=== PATIENT | female | born 1985 | race African-American/Black ===

== ENCOUNTER 2018-05-30 08:32 | Emergency (ER) | payer MEDICAID ==
[~2018-05-30] VITALS: Ht 165.1 cm; Wt 129.5 kg
[2018-05-30 08:38] VITALS: Ht 165.1 cm; Wt 129.5 kg
[2018-05-30 09:48] LABS: APPEARANCE SL CLDY (CLEAR); BACTERIA MANY /hpf (NONE SEEN); BILIRUBIN NEGATIVE (NEGATIVE); COLOR YELLOW (YELLOW); GLUCOSE NEGATIVE (NEGATIVE); KETONE NEGATIVE (NEGATIVE); MUCUS <1+ /lpf (NONE SEEN); NITRITE NEGATIVE (NEGATIVE); PROTEIN NEGATIVE (NEGATIVE); RED CELLS - URINE 0-5 /hpf (0-5); SPECIFIC GRAVITY 1.015 (1.005-1.020); UROBILINOGEN NORMAL (NORMAL); WHITE CELLS - URINE 0-5 /hpf (0-5)
[2018-05-30 10:13] VITALS: BP 150/91
== END 2018-05-30 10:11 | disposition home or self-care (01) ==
LOC: D.ER 08:32
PROVIDERS: Family Medicine
DX: K43.9 Ventral hernia without obstruction or gangrene (principal); F17.200 Nicotine dependence, unspecified, uncomplicated

== ENCOUNTER 2020-05-18 06:07 | Day surgery (SDC) | payer MEDICAID ==
[2020-05-14 10:37] LABS: BASOPHILS 0.2 % (0-2); EOSINOPHILS 1.3 % (0-7); HEMATOCRIT 39.9 % (36.0-48.0); HEMOGLOBIN 12.9 g/dL (12-16); IMMATURE GRANULOCYTES 0.2 % (0-5); LYMPHOCYTES 32.7 % (15-50); MCH 31.4 pg (26.0-34.0); MCHC 32.3 g/dL (31.0-37.0); MCV 97.1 fL (80.0-100.0); MEAN PLATELET VOLUME 10.4 fL (7.4-10.4); MONOCYTES 5.3 % (2-11); NEUTROPHILS 60.3 % (40-80); PLATELET COUNT 223 10x3/uL (130-400); RBC 4.11 10x6/uL (4.00-5.40)
[2020-05-14 10:52] LABS: CALC OSMOLALITY 281 mosm/kg (275-300); CALCIUM 8.5 mg/dL (8.5-10.1); CHLORIDE - SERUM 103 mmol/L (98-107); CREATININE - SERUM 0.8 mg/dL (0.6-1.3); POTASSIUM - SERUM 3.3 mmol/L (3.5-5.1); SODIUM 138 mmol/L (136-145); UREA NITROGEN 14 mg/dL (7-18); eGFR NON AFRICAN AMERICAN 87 mL/min (90-120)
[2020-05-14 10:54] LABS: GLUCOSE 191 mg/dL (74-106)
[~2020-05-18] VITALS: Ht 165.1 cm; Wt 122.9 kg
--- NOTE | ~2020-05-18 | OP ---
PATIENT NAME: SILVERIO DON MEDICAL RECORD: [id number] :85 LOCATION:D.OPS ADMISSION DATE: SURGEON: DARSHAN CRAWFORD MD DATE OF OPERATION: 05/18/2020 PREOPERATIVE DIAGNOSES: 1. Ventral incisional hernia. 2. Tobacco dependence syndrome. 3. Morbid obesity with a BMI of 45. 4. Hypertension. POSTOPERATIVE DIAGNOSES: 1. Ventral incisional hernia. 2. Tobacco dependence syndrome. 3. Morbid obesity with a BMI of 45. 4. Hypertension. PROCEDURE: Ventral hernia repair with 15 x [address] mesh. SURGEON: Darshan Crawford MD REPORT OF PROCEDURE: The patient's abdomen was prepped and draped in sterile fashion. The patient had a previous midline incision and this scar was used to guide us in opening up the upper midline. We then used electrocautery to come through the subcutaneous tissues. As we penetrated down through the tissues, we encountered multiple hernia defects. The largest one was near the umbilicus. We penetrated this hernia defect and entered the abdominal cavity. We did a tedious dissection taking down any adhesions to the anterior abdominal wall. There were mainly some adhesions of the omentum to the anterior abdominal wall and the hernia defects. Once we had this all freed up, we opened up all of the bridging fascial tissue between the hernia defects and the final defect was approximately 20 cm in length. We elevated the fatty tissue off the anterior aspect of the fascia. At this point, a 15 cm x [address] mesh was inserted in an underlay fashion and this was sutured down on all sides using multiple interrupted 0 Prolenes. The mesh rested in good position. We irrigated out the wound with normal saline. The fascia was then closed in the midline overlying the mesh using a running #1 loop PDS times 2. We assured there was no sign of any bleeding. The umbilicus was tacked back down using an interrupted 3-0 Vicryl and the subcutaneous tissues were reapproximated with interrupted 3-0 Vicryl. The skin was closed with running subcutaneous 5-0 Monocryl and dressed appropriately. COMPLICATIONS: None. CONDITION: Stable. ANESTHESIA: General endotracheal. BLOOD LOSS: 50 mL. TRANSINT:[id number] Voice Confirmation ID: [id number] DOCUMENT ID: [id number] OPERATIVE REPORT [id number] SILVERIO DON DARSHAN CRAWFORD MD CC: MOON LEWIS APRN [id number] DICTATION DATE: 05/18/20 1000 RESORT DESK CLERK: 05/18/201927 [facility] [place] 05/18/20 [facility] [address] [place] [address]
[~2020-05-18 06:07] MED LIST: BUPROPION HCL100 MG PO; HCTZ25 MG PO; NORVASC10 MG PO
[2020-05-18 06:22] VITALS: BP 157/102; Ht 165.1 cm; Wt 122.9 kg
[2020-05-18 06:34] LABS: HCG URINE NEGATIVE (NEGATIVE)
[2020-05-18] MEDS ORDERED: HYDROCODON-ACE1 EA10 PO (09:51)
[2020-05-18] MEDS ORDERED: CYCLOBENZAPRINE10 MG PO (09:52)
--- NOTE | 2020-05-18 10:59 | NUR ---
1045 ASSISSTED UP TO BR VOIDS QS, AMBULATED WITH ASSISSTANCE, RETURNED TO BED TO REST. SISTER AT BEDSIDE.
== END 2020-05-18 12:15 | disposition home or self-care (01) ==
LOC: D.OPS 06:07 → D.PAN 09:45 → D.OPS 09:45
PROVIDERS: ATTEND Surgery
DX: K43.2 Incisional hernia without obstruction or gangrene (principal); F17.210 Nicotine dependence, cigarettes, uncomplicated; E66.01 Morbid (severe) obesity due to excess calories; Z68.42 Body mass index [BMI] 45.0-49.9, adult; I10 Essential (primary) hypertension

== ENCOUNTER 2020-06-07 17:10 | Emergency (ER) | payer MEDICAID ==
[2020-05-18 06:22] VITALS: Ht 165.1 cm; Wt 126.4 kg
[~2020-06-07] VITALS: Ht 165.1 cm; Wt 126.4 kg
[~2020-06-07 17:10] MED LIST changes: +CYCLOBENZAPRINE10 MG PO; +HYDROCODON-ACE1 EA10 PO
[2020-06-07 17:30] VITALS: BP 152/91
[2020-06-07 18:25] LABS: BASOPHILS 0.2 % (0-2); EOSINOPHILS 2.8 % (0-7); HEMATOCRIT 30.6 % (36.0-48.0); HEMOGLOBIN 9.4 g/dL (12-16); IMMATURE GRANULOCYTES 0.9 % (0-5); LYMPHOCYTES 26.2 % (15-50); MCH 29.6 pg (26.0-34.0); MCHC 30.7 g/dL (31.0-37.0); MCV 96.2 fL (80.0-100.0); MEAN PLATELET VOLUME 9.8 fL (7.4-10.4); MONOCYTES 6.7 % (2-11); NEUTROPHILS 63.2 % (40-80); RBC 3.18 10x6/uL (4.00-5.40); RDW 13.6 % (11.5-14.5); WBC 9.1 10x3/uL (4.8-10.8)
[2020-06-07 18:31] LABS: PLATELET COUNT 358 10x3/uL (130-400)
[2020-06-07 18:40] LABS: CALC OSMOLALITY 280 mosm/kg (275-300); CALCIUM 8.9 mg/dL (8.5-10.1); CHLORIDE - SERUM 102 mmol/L (98-107); CREATININE - SERUM 0.9 mg/dL (0.6-1.3); POTASSIUM - SERUM 3.1 mmol/L (3.5-5.1); SODIUM 139 mmol/L (136-145); UREA NITROGEN 15 mg/dL (7-18); eGFR NON AFRICAN AMERICAN 75 mL/min (90-120)
[2020-06-07 18:42] LABS: APTT 27.2 SECONDS (22.8-39.4); INR 1.05 (0.85-1.17); PROTIME 13.7 SECONDS (11.6-15.0)
[2020-06-07 18:44] LABS: GLUCOSE 129 mg/dL (74-106)
[2020-06-07 18:46] LABS: ALBUMIN 3.3 g/dL (3.4-5.0); ALKALINE PHOSPHATASE 73 U/L (30-120); ALT (SGPT) 15 U/L (10-68); BILIRUBIN - TOTAL 0.31 mg/dL (0.2-1.3); MAGNESIUM - SERUM 1.6 mg/dL (1.8-2.4); PROTEIN - SERUM 7.6 g/dL (6.4-8.2)
[2020-06-07 19:56] LABS: HCG SERUM NEGATIVE (NEGATIVE)
[2020-06-07 20:20] LABS: BILIRUBIN NEGATIVE (NEGATIVE); KETONE NEGATIVE (NEGATIVE); NITRITE NEGATIVE (NEGATIVE); UROBILINOGEN NORMAL mg/dL (< 2)
[2020-06-07 20:21] LABS: EPITHELIAL CELLS 0-5 /hpf (0-5); WHITE CELLS - URINE 0-5 HPF (0-4)
[2020-06-07 20:22] LABS: BACTERIA FEW HPF (NONE SEEN)
[2020-06-07] MEDS ORDERED: HYDROCODON-ACE1 EAC7 PO (21:01)
== END 2020-06-07 21:52 | disposition home or self-care (01) ==
LOC: D.ER 17:10
PROVIDERS: Family Medicine
DX: S30.1XXA Contusion of abdominal wall, initial encounter (principal); D35.00 Benign neoplasm of unspecified adrenal gland; D64.9 Anemia, unspecified; E87.6 Hypokalemia; E83.42 Hypomagnesemia; R73.9 Hyperglycemia, unspecified; I10 Essential (primary) hypertension; Z72.0 Tobacco use

== ENCOUNTER 2020-11-04 06:46 | Day surgery (SDC) | payer MEDICAID ==
[~2020-11-04] VITALS: Ht 165.1 cm; Wt 119.3 kg
--- NOTE | ~2020-11-04 | OP ---
PATIENT NAME: SILVERIO DON MEDICAL RECORD: [id number] :85 LOCATION:IVAN ADMISSION DATE: SURGEON: KAMLESH CRAWFORD MD DATE OF OPERATION: 11/04/2020 PREOPERATIVE DIAGNOSES: 1. Chronic abdominal wound. 2. History of ventral hernia repair with mesh. 3. Morbid obesity with a BMI of 45. 4. Hypertension. POSTOPERATIVE DIAGNOSES: 1. Chronic abdominal wound. 2. History of ventral hernia repair with mesh. 3. Morbid obesity with a BMI of 45. 4. Hypertension. PROCEDURE: Abdominal wound exploration with debridement. SURGEON: Kamlesh Crawford MD DESCRIPTION OF PROCEDURE: The patient's abdomen was prepped and draped in sterile fashion. A skin incision was made in the midline just above the umbilicus. Electrocautery was used to dissect through the subcutaneous tissues. We were able to elevate the patient's umbilicus where there was an open draining wound. Leading from this, there was some necrotic-appearing proteinaceous material. I was able to follow this down and eventually bluntly poked into a pocket with more of this proteinaceous material and what appeared to be some thin purulent material. We were able to get cultures of this fluid. This pocket was opened up using electrocautery. I was able to debride some of this material off of what appeared to be the fascial layer. I never felt the patient's mesh was penetrating around this wound. The defect itself was probably 8 cm long and about a 5-6 cm wide. I went ahead and unroofed the overlying inflamed fatty tissue in all directions and again I never encountered any mesh material. I did encounter one Prolene suture, which was removed. The underlying tissue could have possibly been the mesh underlying the fascia, but I never felt any material that felt like mesh and I believe this was an abscess pocket that was overlying the rectus fascia. I irrigated out the wound thoroughly with peroxide and saline solution. I inspected the area to assure there was no sign of any active bleeding. The umbilicus was then repaired with a [id number] 5-0 Monocryl. The umbilicus was then tacked down to the underlying tissues using a single interrupted 3-0 Vicryl. A 15 round Martín drain was inserted through the right lower quadrant and it rested in position on this abscess pocket. The subcutaneous tissues were then reapproximated with multiple interrupted 3-0 Vicryl and the skin was closed with running subcutaneous 5-0 Monocryl. A 10 mL of 0.25% Marcaine with epinephrine was infused into the surrounding tissues and the wounds were dressed appropriately. COMPLICATIONS: None. CONDITION: Stable. ANESTHESIA: General endotracheal and local. BLOOD LOSS: 30 mL. OPERATIVE REPORT [id number] SILVERIO DON TRANSINT:[id number] Voice Confirmation ID: [id number] DOCUMENT ID: [id number] KAMLESH CRAWFORD MD CC: MOON LEWIS APRN [id number] DICTATION DATE: 11/04/20 1012 DATABASES SOFTWARE CONSULTANT: 11/04/20 1027 [facility] [address] [place] [address]
[~2020-11-04 06:46] MED LIST changes: +CATAPRES0.1 MG PO; +FLAGYL500 MG PO; +HYDROCODON-ACE1 EAC7 PO
[2020-11-04 07:03] LABS: BASOPHILS 0.1 % (0-2); EOSINOPHILS 1.6 % (0-7); HEMATOCRIT 36.9 % (36.0-48.0); HEMOGLOBIN 11.6 g/dL (12-16); IMMATURE GRANULOCYTES 0.1 % (0-5); LYMPHOCYTE ABS# 3.02 10x3/uL (1.18-3.74); LYMPHOCYTES 31.6 % (15-50); MCH 27.6 pg (26.0-34.0); MCHC 31.4 g/dL (31.0-37.0); MCV 87.6 fL (80.0-100.0); MEAN PLATELET VOLUME 9.3 fL (7.4-10.4); NEUTROPHIL ABS# 5.81 10x3/uL (1.56-6.13); NEUTROPHILS 60.6 % (40-80); PLATELET COUNT 236 10x3/uL (130-400); RBC 4.21 10x6/uL (4.00-5.40); RDW 16.3 % (11.5-14.5); WBC 9.6 10x3/uL (4.8-10.8)
[2020-11-04 07:15] LABS: CALC OSMOLALITY 279 mosm/kg (275-300); CALCIUM 8.7 mg/dL (8.5-10.1); CARBON DIOXIDE 24.3 mmol/L (21.0-32.0); CHLORIDE - SERUM 106 mmol/L (98-107); CREATININE - SERUM 0.8 mg/dL (0.6-1.3); GLUCOSE 120 mg/dL (74-106); POTASSIUM - SERUM 3.8 mmol/L (3.5-5.1); SODIUM 138 mmol/L (136-145); UREA NITROGEN 20 mg/dL (7-18); eGFR NON AFRICAN AMERICAN 86 mL/min (90-120)
[2020-11-04 07:24] LABS: HCG SERUM NEGATIVE (NEGATIVE)
[2020-11-04 08:22] VITALS: BP 189/108; Ht 165.1 cm; Wt 119.3 kg
[2020-11-04] MEDS ORDERED: HYDROCODON-ACE1 EA10 PO (10:04)
[2020-11-04] MEDS ORDERED: CIPRO500 MG PO (10:07)
[2020-11-04] MEDS ORDERED: FLAGYL500 MG PO (10:07)
--- NOTE | 2020-11-04 13:41 | NUR ---
1230 ASSISTED WITH GETTING DRESSED AND SAFTY PIN TO PANTS TO HOLD JING DRAIN. EPTIED 32.5ML SEROUS BLOOD
== END 2020-11-04 12:40 | disposition home or self-care (01) ==
LOC: D.OPS 06:46
PROVIDERS: Anesthesiology; ATTEND Surgery
DX: T81.41XD Infection following a procedure, superficial incisional surgical site, subsequent encounter (principal); K43.9 Ventral hernia without obstruction or gangrene; E66.01 Morbid (severe) obesity due to excess calories; Z68.42 Body mass index [BMI] 45.0-49.9, adult; I10 Essential (primary) hypertension

== ENCOUNTER 2020-12-04 09:17 | Inpatient (IN) | payer MEDICAID ==
[~2020-12-04] VITALS: Ht 165.1 cm; Wt 118.2 kg
[~2020-12-04 09:17] MED LIST changes: +CIPRO500 MG PO
--- NOTE | 2020-12-04 09:54 | NUR ---
PATIENT ASSISTED TO BATHROOM FOR URINE SAMPLE. PAIN WITH AMBULATION NOTED. PATIENT WOUND ASSESSED. BLOOD CULTURES AND LAB DRAWN AND GIVEN TO DRAG DOWN AT BEDSIDE.
--- NOTE | 2020-12-04 10:03 | NUR ---
URINE SPECIMEN WALKED TO LAB AND GIVEN TO LAB STAFF.
[2020-12-04 10:06] LABS: BASOPHILS 0.1 % (0-2); HEMATOCRIT 35.1 % (36.0-48.0); IMMATURE GRANULOCYTES 0.5 % (0-5); LYMPHOCYTES 11.8 % (15-50); MCH 28.6 pg (26.0-34.0); MCHC 31.3 g/dL (31.0-37.0); MCV 91.2 fL (80.0-100.0); MEAN PLATELET VOLUME 10.1 fL (7.4-10.4); MONOCYTES 7.6 % (2-11); NEUTROPHIL ABS# 11.34 10x3/uL (1.56-6.13); PLATELET COUNT 255 10x3/uL (130-400); RBC 3.85 10x6/uL (4.00-5.40); WBC 14.4 10x3/uL (4.8-10.8)
[2020-12-04 10:24] LABS: CALC OSMOLALITY 268 mosm/kg (275-300); CALCIUM 8.6 mg/dL (8.5-10.1); CARBON DIOXIDE 23.9 mmol/L (21.0-32.0); CHLORIDE - SERUM 101 mmol/L (98-107); CREATININE - SERUM 0.5 mg/dL (0.6-1.3); GLUCOSE 100 mg/dL (74-106); SODIUM 134 mmol/L (136-145); UREA NITROGEN 14 mg/dL (7-18); eGFR NON AFRICAN AMERICAN > 90 mL/min (90-120)
[2020-12-04 10:32] LABS: BILIRUBIN NEGATIVE (NEGATIVE); KETONE NEGATIVE (NEGATIVE); NITRITE NEGATIVE (NEGATIVE)
[2020-12-04 10:33] LABS: ALKALINE PHOSPHATASE 62 U/L (30-120); ALT (SGPT) 16 U/L (10-68); AMYLASE - SERUM 19 U/L (25-115); PROTEIN - SERUM 6.7 g/dL (6.4-8.2)
[2020-12-04 10:34] LABS: BACTERIA 1+ HPF (NONE SEEN)
[2020-12-04 10:34] LABS: LIPASE 30 U/L (73-393); POTASSIUM - SERUM 4.4 mmol/L (3.5-5.1); TROPONIN-I < 0.017 ng/mL (0.000-0.060)
--- NOTE | 2020-12-04 10:43 | NUR ---
PATIENT TAKEN TO CT VIA STRETCHER
[2020-12-04 10:45] VITALS: BP 126/73
--- NOTE | 2020-12-04 11:05 | NUR ---
PATIENT RETURNED TO ROOM FROM CT. PAIN MEDICATIONS GIVEN, AT BEDSIDE. EDUCATED ON PURPOSE OF ANTIBIOTICS AND PROBIOTICS.
--- NOTE | 2020-12-04 11:45 | NUR ---
PATIENT STATING SHE WANTS TO GO HOME, THAT SHE DOES NOT WANT TO STAY. DR WESTFALL NOTIFIED. HE SPOKE WITH PATIENT AND SHE HAS DECIDED TO STAY INPATIENT FOR TREATMENT.
--- NOTE | 2020-12-04 12:11 | NUR ---
PATIENT STATED FOR 3RD TIME THAT SHE HAS CHANGED HER MIND, SHE DOES NOT WANT TO STAY IN THE HOSPITAL, SHE HAS KIDS SHE NEEDS TO GO HOME TO AND WOULD LIKE TO BE DISCHARGED. DR WESTFALL NOTIFIED. DR WESTFALL SPOKE WITH PATIENT. PATIENT STATES THAT SHE WILL STAY AND BE TREATED.
--- NOTE | 2020-12-04 12:37 | NUR ---
ATTEMPTED REPORT X 2. STATES THAT RECIEVING NURSE IS KT AND SHE IS BUSY.
--- NOTE | 2020-12-04 12:47 | NUR ---
ATTEMPTED TO CALL AND GET REPORT FROM SEBASTIÁN JAIMES RN. DID NOT COME TO PHONE.
--- NOTE | 2020-12-04 12:59 | NUR ---
REPORT CALLED TO ALFREDO MERAZ, ACCEPTING NURSE TO MED SURG.
--- NOTE | 2020-12-04 13:06 | NUR ---
TAKEN TO FLOOR
[2020-12-04] MEDS ORDERED: ULTRAM50 MG PO (13:32)
[2020-12-04] MEDS ORDERED: BUPROPION HCL150 M1 PO (13:34)
--- NOTE | 2020-12-04 13:41 | NUR ---
PT ADMITTED TO FLOOR FROM ER. PT ARRIVES TO FLOOR VIA STRETCHER ESCORTED BY HOSPITAL STAFF. PT IS AAO X 4 AND ANSWERS ALL QUESTIONS APPROPRIATELY. PIV TO LEFT HAND INFUSING WITHOUT COMPROMISE AND INFUSING VANCOMYCIN PER ORDER. PT REPORTS NEW ONSET OF ITCHING AND RASH NOTED TO LEFT WRIST/ARM. PT STATES THAT SHE IS NOW ITCHING TO RLE AND REPORTS A NEW ONSET OF ITCH. DR MANZANARES ON FLOOR AND NOTIFIED OF PT ITCHING AND VERBAL ORDERS RED ARE BENADRYL 50 MG PO Q 6 HOURS PRN FOR ITCHING. WILL PLACE ORDERS AND ADMINISTER. MIDLINE INCISION NOTED TO ABDOMEN WITH MODERATE AMOUNT OF CLEAR DRAINAGE NOTED. PT REQUESTS 4X4 AND TAPE AND STATES "I CAN PUT THE BANDAGES ON MYSELF". SUPPLIES GIVEN PER PT REQUEST. PT DENIES PRESENCE OF PAIN/N/V AT THIS TIME. INCENTIVE SPIROEMTER GIVEN AND EDUCATION GIVEN. PT GIVES APPROPRIATE RETURN DEMONSTRATION AND REACHES 2000. PT REFUSES SCDS AT THIS TIME. BED IS IN THE LOWEST POSITION. CALL LIGHT AND BEDSIDE TABLE ARE WITIHN REACH. SIDE RAILS X 2. PT DENIES FURTHER NEEDS. WILL ADMINISTER BENADRYL PER ORDER AND WILL CONT TO MONITOR.
[2020-12-04 14:12] VITALS: BP 143/74; BMI 43.3
--- NOTE | 2020-12-04 14:22 | NUR ---
PT REQUESTS FOR VANCOMYCIN TO BE ADDED TO ALLERGY LIST DUE TO ITCHING "ALL OVER". WILL ADD PER PT REQUEST.
--- NOTE | 2020-12-04 15:39 | NUR ---
PT IS RESTING IN BED WITH EYES CLOSED. PT IS EASILY AROUSED WITH VERBAL STIMULATION. RESPIRATIONS ARE EVEN AND UNLABORED. PT REPORTS ITCHINESS HAS SUBSIDED AND DENIES FURTHER NEEDS. INCENTIVE SPIROMETER WITHIN REACH AND ENCOURAGED. BED IS IN THE LWOEST POSITION. CALL LIGHT AND BEDSIDE TABLE ARE WITHIN REACH. SIDE RAIL X 2. WILL CONT TO MONITOR.
[2020-12-04 17:35] VITALS: BP 126/78
--- NOTE | 2020-12-04 17:50 | NUR ---
PT REPORTS SMOKING "4-5" CIGARETTES A DAY AND REQUESTS NICOTINE PATCH. PER COREMEASURE WILL PLACE ORDER FOR 7MG NICOTINE PATCH Q 24 HOURS.
[2020-12-04 19:11] VITALS: Ht 165.1 cm; Wt 118.2 kg
--- NOTE | 2020-12-04 20:04 | NUR ---
GAVE ABIMAEL CRACKERS AND PEANUT BUTTER FOR HS SNACK PER REQUEST. REMINDED PT THAT SHE IS NPO AFTER MIDNIGHT.
--- NOTE | 2020-12-04 20:49 | NUR ---
PT STATED SHE WANTS TO LEAVE, INFORMED PT SHE HAD TO LEAVE AGAINST MEDICAL ADVICE AND EDUCATED HER, AMA SIGNED DR MANZANARES NOTIFIED
--- NOTE | 2020-12-05 16:56 | MORECARE ---
CASE MANAGEMENT DISCHARGE SUMMARY PATIENT: SILVERIO DON UNIT: [id number] ADM DATE: 12/04/20 AGE: 35 : 85 SEX: F ROOM/BED: D.[facility] AUTHOR: ANA,DOC PHYSICIAN: REFERRING PHYSICIAN: ELIEZER MANZANARES MD DATE OF SERVICE: 12/05/20 Case Management Discharge Planning Summary DCP REVIEW SUMMARY ANTICIPATED D/C DATE: EXPECTED LOS : CASE STATUS: DCP Complete INITIAL REVIEW: 12/04/2020 INITIAL REVIEWER: Yoanna Hidalgo FINAL DISCHARGE DISPOSITION: : FINAL REVIEWER: FINAL REVIEW DATE: DCP Focus Questions & Answers QUESTION: ANSWER : PATIENT: SILVERIO DON ENCOUNTER: [id number] MEDICAL RECORD#: [id number] ADMISSION DATE: 12/04/2020 DISCHARGE DATE: 12/04/2020 ATTENDING MD: ELIEZER CARVAJAL : AGE: 35 MARITAL STATUS: S DC PLAN ID: [id number] FACILITY: [facility] PRINTED ON: 12/05/20 16:56 CT All edits/amendments must be made on the electronic document DICTATION DATE: 12/05/201654 BOOK SOLICITOR: DM 12/05/201654 RPT#: [id number] DC DATE:12/04/20 STATUS: DIS IN [facility] [address] [place] [address] END OF REPORT
--- NOTE | 2020-12-05 17:09 | MORECARE ---
CASE MANAGEMENT DISCHARGE SUMMARY PATIENT: SILVERIO DON UNIT: [id number] ADM DATE: 12/04/20 AGE: 35 : 85 SEX: F ROOM/BED: D.[facility] AUTHOR: ANA,DOC PHYSICIAN: REFERRING PHYSICIAN: ELIEZER MANZANARES MD DATE OF SERVICE: 12/05/20 Case Management Discharge Planning Summary DCP REVIEW SUMMARY ANTICIPATED D/C DATE: EXPECTED LOS : CASE STATUS: DCP Complete INITIAL REVIEW: 12/04/2020 INITIAL REVIEWER: Yoanna Hidalgo FINAL DISCHARGE DISPOSITION: : FINAL REVIEWER: FINAL REVIEW DATE: DCP Focus Questions & Answers QUESTION: ANSWER : PATIENT: SILVERIO DON ENCOUNTER: [id number] MEDICAL RECORD#: [id number] ADMISSION DATE: 12/04/2020 DISCHARGE DATE: 12/04/2020 ATTENDING MD: ELIEZER CARVAJAL : AGE: 35 MARITAL STATUS: S DC PLAN ID: [id number] FACILITY: [facility] PRINTED ON: 12/05/20 17:08 CT All edits/amendments must be made on the electronic document DICTATION DATE: 12/05/201707 TECHNICAL SERVICE ENGINEER: DM 12/05/201707 RPT#: [id number] DC DATE:12/04/20 STATUS: DIS IN [facility] [address] [place] [address] END OF REPORT
== END 2020-12-04 20:51 | disposition left against medical advice (07) | DRG 921 ==
LOC: D.ER 09:17 → D.MS 12:08
PROVIDERS: Family Medicine; ADMIT Surgery; ATTEND Surgery
DX: K91.873 Postprocedural seroma of a digestive system organ or structure following other procedure (principal); Z72.0 Tobacco use; I10 Essential (primary) hypertension

== ENCOUNTER → 2020-12-06 18:44 | Outpatient (CLI) | payer MEDICAID ==
[2020-12-04 19:11] VITALS: BMI 43.3
[~2020-12-06 18:44] MED LIST changes: +BUPROPION HCL150 M1 PO; +ULTRAM50 MG PO
== END | disposition home or self-care (01) ==
LOC: D.LABREF 18:44
PROVIDERS: ATTEND Surgery
DX: L76.34 Postprocedural seroma of skin and subcutaneous tissue following other procedure (principal)